=== PATIENT | female | born 1950 | race Caucasian/White ===

== ENCOUNTER → 2019-05-15 | Outpatient (CLI) | payer MEDICARE | END | disposition home or self-care (01) | LOC: PLD 07:32 → LAB SHORT 07:32 | DX: K12.1 Other forms of stomatitis (principal) | CPT/HCPCS: 88305 ==

== ENCOUNTER 2020-11-25 13:02 | Day surgery (SDC) | payer MEDICARE ==
[~2020-11-25 13:02] MED LIST: CO Q10100 MG PO; CYAN500 PO; DHEA25 M1 PO; GLUC500 PO; MULTIPLE VITAM1 EACH PO; VITAMIN D325 MC3 PO; Vitamin B Comple1 EA PO
--- NOTE | 2020-11-25 13:41 | NUR ---
11/25/20 1341 ANNABELLE SANCHEZ ONE ATTEMPT IN RFA VALVE ONE SUCCESSFUL IN RAC BY AYSE CARLSON TOW
== END 2020-11-25 15:00 | disposition home or self-care (01) ==
LOC: ORSCSDS 13:02
PROVIDERS: Surgery
PROC: 0DJD8ZZ Inspection of Lower Intestinal Tract, Via Natural or Artificial Opening Endoscopic (ICD-10-PCS; principal; 2020-11-25 14:15)
DX: Z12.11 Encounter for screening for malignant neoplasm of colon (principal); F41.9 Anxiety disorder, unspecified; E03.9 Hypothyroidism, unspecified; Z87.891 Personal history of nicotine dependence; Z79.899 Other long term (current) drug therapy
CPT/HCPCS: J2704; J7120

== ENCOUNTER 2021-10-04 06:26 | Day surgery (SDC) | payer MEDICARE ==
[~2021-10-04] VITALS: Ht 162.6 cm; Wt 46.4 kg
[2021-10-04] MEDS ORDERED: Armour Thyroid15 MG PO (07:02)
--- NOTE | 2021-10-04 07:13 | NUR ---
10/04/21 0713 Josh Ortiz CALL LIGHT WITHIN REACH.
== END 2021-10-04 08:20 | disposition home or self-care (01) ==
LOC: ORSCSDS 06:26
PROVIDERS: Orthopaedic Surgery
PROC: 01N50ZZ Release Median Nerve, Open Approach (ICD-10-PCS; principal; 2021-10-04 07:30)
DX: G56.01 Carpal tunnel syndrome, right upper limb (principal); E03.9 Hypothyroidism, unspecified; M19.90 Unspecified osteoarthritis, unspecified site; Z79.899 Other long term (current) drug therapy; Z87.891 Personal history of nicotine dependence
CPT/HCPCS: J2250; J2704; J3010; J7120

== ENCOUNTER → 2023-03-28 | Outpatient (CLI) | payer OTHER ==
[~2023-03-28] MED LIST changes: +Armour Thyroid15 MG PO
== END | disposition home or self-care (01) ==
LOC: LAB SHORT 07:55 → LAB 07:55 → LAB FUT 03-16 14:20
DX: K90.9 Intestinal malabsorption, unspecified (principal)
CPT/HCPCS: 87338